=== PATIENT | male | born 1965 | race Caucasian/White ===

== ENCOUNTER → 2017-07-11 | Outpatient (CLI) | payer BC ==
[~2017-07-11] MED LIST: AMOXICILLIN500 M1 PO; ASPIR 8181 M1 PO; AZITHROMYCIN250 MG1 PO; Aspirin E.C. PO; COZAAR25 MG PO; Cipro PO; Cozaar PO; Diabeta,Micronase PO; GLUCOVANCE 51 TABLET PO; GUAIFENESIN WI120 ML PO; Keflex PO; PRAVACHOL10 MG PO; Pravachol PO; VENTOLIN HFA18 GM IH; VIAGRA100 MG PO
== END | disposition home or self-care (01) ==
LOC: RES 07:56
DX: R05 Cough (principal)
CPT/HCPCS: 94070; 94726; 94729